=== PATIENT | female | born 1940 | race Native Hawaiian/Other Pacific Islander ===

== ENCOUNTER 2017-06-25 08:22 | Outpatient (CLI) | payer OTHER ==
[~2017-06-25] VITALS: Ht 160 cm; Wt 63.5 kg
== END 2017-06-25 10:30 | disposition home or self-care (01) ==
LOC: NM 08:22
DX: R53.83 Other fatigue (principal); I10 Essential (primary) hypertension; I25.10 Atherosclerotic heart disease of native coronary artery without angina pectoris; R07.89 Other chest pain
CPT/HCPCS: A9500; J2785

== ENCOUNTER 2022-01-13 00:55 | Emergency (ER) | payer OTHER ==
[~2022-01-13] VITALS: Ht 160 cm; Wt 64.0 kg
[2022-01-13 01:13] VITALS: TEMP 97.9
[2022-01-13 02:17] LABS: PLATELET COUNT 258 K/uL (152-353)
[2022-01-13 02:25] LABS: POTASSIUM 4.5 mmol/L (3.6-5.2)
[2022-01-13 02:42] LABS: PARTIAL THROMBOPLASTIN TIME 24.9 SECONDS (24.5-33.6)
[2022-01-13 04:50] VITALS: BP 159/90
== END 2022-01-13 04:50 | disposition home or self-care (01) ==
LOC: ED 00:55
PROVIDERS: Hospitalist
DX: R07.89 Other chest pain (principal); R09.1 Pleurisy
CPT/HCPCS: 36415; 80053; 81002; 82550; 83880; 84484; 85027; 85379; 85610; 85730; 93005; 96374; 96375; 99284; J1885; J2405; Q9963